=== PATIENT | male | born 1955 | race Caucasian/White ===

== ENCOUNTER 2024-02-07 09:56 | Day surgery (SDC) | payer MEDICARE, MEDICAID ==
[2024-02-04 10:10] VITALS: BMI 17.3
[2024-02-07] MEDS ORDERED: Magnevist 469MG/ML 20 ML VIAL ONE (10:35)
[2024-02-07] MEDS ORDERED: SUGAMMADEX SODIUM 200 MG/2 ML VIAL ONE (12:09)
[2024-02-07] MEDS ORDERED: Midazolam HCl 2 mg/2 ml Vial ONE (12:34)
== END 2024-02-07 14:35 | disposition short-term general hospital (02) ==
LOC: SDC/OP 09:56
PROVIDERS: ATTEND Nurse Practitioner Family
DX: L89.300 Pressure ulcer of unspecified buttock, unstageable (principal); K21.9 Gastro-esophageal reflux disease without esophagitis; H47.619 Cortical blindness, unspecified side of brain; D64.9 Anemia, unspecified; Z93.2 Ileostomy status; E78.1 Pure hyperglyceridemia; E55.9 Vitamin D deficiency, unspecified; Z98.890 Other specified postprocedural states; Z79.899 Other long term (current) drug therapy; Z88.6 Allergy status to analgesic agent
CPT/HCPCS: 72197; 82565; A9579; J2250